=== PATIENT | female | born 1935 | race Asian ===

== ENCOUNTER 2016-08-18 22:04 | Inpatient (IN) | payer MEDICARE, MEDICAID ==
[~2016-08-18] VITALS: Ht 162.6 cm; Wt 66.5 kg
[~2016-08-18 22:04] MED LIST: AMLO1TAB12 PO; ASPI81 PO; CALC-776 PO; CALC1TAB15 PO; METF500T7 PO; METO25 PO; SIMV-259 PO; VITAD400 PO
[2016-08-18] MEDS ORDERED: SIMV-260 PO (22:17)
[2016-08-18] MEDS ORDERED: CARV6 PO (22:17)
[2016-08-18] MEDS ORDERED: ALLO100T PO (22:17)
[2016-08-18] MEDS ORDERED: MELO-273 PO (22:17)
[2016-08-18] MEDS ORDERED: DILTIAZEM HCL 5 MG/ML 5 ML VIAL IVP ONE (22:45)
[2016-08-18 22:52] LABS: BASOPHILS % (AUTO) 0.4 % (0.0-2.0); EOSINOPHILS % (AUTO) 4.1 % (1.0-6.0); LYMPHOCYTES # (AUTO) 2.8 K/uL (1.0-4.8); MEAN CORPUSCULAR HEMOGLOBIN 31.5 pg (26.0-34.0); MEAN CORPUSCULAR HGB CONC 33.2 G/dL (31.0-37.0); MEAN CORPUSCULAR VOLUME 95 fL (80-100); MONOCYTES # (AUTO) 0.6 K/uL (0.1-1.0); MONOCYTES % (AUTO) 10.6 % (2.0-9.0); NEUTROPHILS # (AUTO) 2.3 K/uL (1.8-7.7); NEUTROPHILS % (AUTO) 37.9 % (40.0-70.0); PLATELET COUNT (AUTO) 125 K/uL (150-450); RED BLOOD CELL COUNT(AUTO) 4.44 MIL/uL (4.00-5.20)
[2016-08-18 23:00] LABS: ANION GAP 8 mmol/L (8-16); CALCIUM, TOTAL 9.1 mg/dL (8.8-10.5); CARBON DIOXIDE 28 mmol/L (22-29); CHLORIDE 105 mmol/L (98-107); CREATININE 0.88 mg/dL (0.60-1.30); GLOMERULAR FILTR. RATE CALC > 60 mL/min (>60); POTASSIUM 3.4 mmol/L (3.5-5.1); SODIUM SERUM 141 mmol/L (136-145); UREA NITROGEN, BLOOD 31 mg/dL (7-18)
[2016-08-18 23:05] LABS: PROTHROMBIN TIME 10.3 SEC (9.4-11.6)
[2016-08-18 23:18] LABS: B-TYPE NATRIURETIC PEPTIDE 194 pg/mL (0-100)
[2016-08-18 23:24] LABS: ALANINE AMINOTRANSFERASE 37 U/L (12-78); ALBUMIN 3.8 g/dL (3.4-5.0); ASPARTATE AMINOTRANSFERASE 26 U/L (15-37); BILIRUBIN,TOTAL 0.2 mg/dL (0.1-1.0); CREATINE KINASE MB 1.9 ng/mL (0-5); CREATINE KINASE, TOTAL 157 U/L (26-192); TOTAL PROTEIN, SERUM 7.9 g/dL (6.4-8.2)
[2016-08-18 23:48] LABS: APPEARANCE,URINE CLEAR (CLEAR); GLUCOSE, URINE (UA) NEGATIVE (NEGATIVE); KETONES,URINE NEGATIVE (NEGATIVE); LEUKOCYTE ESTERASE ,URINE NEGATIVE (NEGATIVE); OCCULT BLOOD,URINE TRACE (NEGATIVE); PROTEIN,URINE NEGATIVE (NEGATIVE)
[2016-08-18 23:52] LABS: ADD UA MICROSCOPIC YES
[2016-08-19] VITALS (13 sets, daily range): BP systolic 142–201; BP diastolic 68–101
[2016-08-19] LABS: RBC,URINE 0-2 /HPF (0-2); WBC,URINE None Seen /HPF (0-5)
[2016-08-19 00:01] LABS: SQUAMOUS EPITHELIAL CELL,UR Rare /LPF (None Seen)
[2016-08-19] MEDS ORDERED: PNEUMOCOCCAL VACCINE POLYVALENT 0.5 ML VIAL [PPSV23] IM ONE (02:45)
[2016-08-19] MEDS ORDERED: DEXTROSE 50%-WATER 25 GM/50 ML SYRINGE IVP PRN (06:00)
[2016-08-19] MEDS: INSULIN ASPART 100 UNITS/ML SQ PRN (06:02)
[2016-08-19 06:48] LABS: BASOPHILS % (AUTO) 0.5 % (0.0-2.0); EOSINOPHILS % (AUTO) 2.4 % (1.0-6.0); HEMATOCRIT 41.6 % (36-46); HEMOGLOBIN 13.6 g/dL (12.0-16.0); LYMPHOCYTES # (AUTO) 2.6 K/uL (1.0-4.8); LYMPHOCYTES % (AUTO) 41.8 % (22.0-44.0); MEAN CORPUSCULAR HGB CONC 32.7 G/dL (31.0-37.0); MEAN CORPUSCULAR VOLUME 95 fL (80-100); MONOCYTES # (AUTO) 0.6 K/uL (0.1-1.0); MONOCYTES % (AUTO) 9.5 % (2.0-9.0); NEUTROPHILS # (AUTO) 2.8 K/uL (1.8-7.7); NEUTROPHILS % (AUTO) 45.8 % (40.0-70.0); PLATELET COUNT (AUTO) 121 K/uL (150-450); RED CELL DISTRIBUTION WIDTH 14.1 % (11.5-14.5); WHITE BLOOD COUNT (AUTO) 6.1 K/uL (4.5-11.0)
[2016-08-19 07:09] LABS: ALANINE AMINOTRANSFERASE 34 U/L (12-78); ALBUMIN 3.4 g/dL (3.4-5.0); ANION GAP 8 mmol/L (8-16); ASPARTATE AMINOTRANSFERASE 26 U/L (15-37); BILIRUBIN,TOTAL 0.5 mg/dL (0.1-1.0); CALCIUM, TOTAL 8.7 mg/dL (8.8-10.5); CARBON DIOXIDE 29 mmol/L (22-29); CHLORIDE 103 mmol/L (98-107); CREATININE 0.76 mg/dL (0.60-1.30); GLOMERULAR FILTR. RATE CALC > 60 mL/min (>60); POTASSIUM 3.1 mmol/L (3.5-5.1); SODIUM SERUM 140 mmol/L (136-145); TOTAL PROTEIN, SERUM 7.2 g/dL (6.4-8.2); UREA NITROGEN, BLOOD 22 mg/dL (7-18)
[2016-08-19] MEDS: MELOXICAM 7.5 MG TABLET PO SCH ×2 (08:00→17:01)
[2016-08-19] MEDS ORDERED: POTASSIUM CHLORIDE 20 MEQ ER TABLET PO PRN (08:00)
[2016-08-19] MEDS: POTASSIUM CHL 10 MEQ/WATER 50 ML IV PRN ×3 (08:15→11:59)
[2016-08-19] MEDS: ALLOPURINOL 100 MG TABLET PO SCH ×2 (09:00→17:01)
[2016-08-19] MEDS: CARVEDILOL 6.25 MG TABLET PO SCH ×2 (09:00→21:37)
[2016-08-19] MEDS ORDERED: [UNRECOGNIZED DRUG - OTHER] PO SCH (09:00)
[2016-08-19] MEDS: VALSARTAN 160 MG TABLET PO SCH (09:00)
[2016-08-19] MEDS: AmLODIPine BESYLATE 5 MG TABLET PO SCH ×2 (09:00→17:01)
[2016-08-19] MEDS: ASPIRIN 81 MG CHEWABLE TABLET PO SCH (09:00)
[2016-08-19] MEDS: CHOLECALCIFEROL (VIT D3) 400 UNITS TABLET PO SCH (09:00)
[2016-08-19] MEDS ORDERED: SODIUM CHLORIDE 0.9% 250 ML IV ONE (09:46)
[2016-08-19] MEDS ORDERED: SODIUM BICARBONATE 50 MEQ/50 ML VIAL ONE ×2 (12:54→12:58)
[2016-08-19] MEDS ORDERED: IOHEXOL 300 MG/ML 50 ML VIAL ONE (12:54)
[2016-08-19] MEDS ORDERED: LIDOCAINE HCL/PF 1% 30 ML VIAL ONE ×2 (12:54→12:58)
[2016-08-19] MEDS ORDERED: FentaNYL CITRATE-PF 100 MCG/2 ML VIAL ONE (13:43)
[2016-08-19] MEDS ORDERED: MIDAZOLAM HCL 2 MG/2 ML VIAL ONE (13:44)
[2016-08-19] MEDS ORDERED: 0.9% SODIUM CHLORIDE 10 ML SYRINGE IVP PRN ×2 (13:45→17:15)
[2016-08-19] MEDS ORDERED: SODIUM CHLORIDE 0.9% 500 ML IV ONE (14:11)
[2016-08-19] MEDS ORDERED: IOHEXOL 300 MG/ML 50 ML VIAL IVP ONE (14:15)
[2016-08-19] MEDS ORDERED: MIDAZOLAM HCL 2 MG/2 ML VIAL IVP ONE (14:15)
[2016-08-19] MEDS ORDERED: FentaNYL CITRATE-PF 100 MCG/2 ML VIAL IVP ONE (14:15)
[2016-08-19] MEDS ORDERED: LIDOCAINE 1% 30 ML/SOD BICARB 8.4% 4 ML SQ ONE (14:15)
[2016-08-19 14:57] LABS: GLUCOSE,POINT OF CARE 128 MG/DL (70-110)
[2016-08-19] MEDS ORDERED: HYDROCODONE/ACETAMINOPHEN 5-325 MG TABLET PO PRN (15:15)
[2016-08-19] MEDS ORDERED: OxyCODONE HCL/ACETAMINOPHEN 5-325 MG TABLET PO PRN ×2 (17:15)
[2016-08-19] MEDS ORDERED: ONDANSETRON HCL 4 MG/2 ML VIAL IVP PRN (17:15)
[2016-08-19] MEDS ORDERED: ACETAMINOPHEN 325 MG TABLET PO PRN (17:15)
[2016-08-19] MEDS ORDERED: MAGNESIUM HYDROXIDE SUSPENSION 30 ML UDCUP PO PRN (17:15)
[2016-08-19] MEDS: PANTOPRAZOLE SODIUM 40 MG/VIAL IVP SCH (17:49)
[2016-08-19 18:23] LABS: GLUCOSE,POINT OF CARE 127 MG/DL (70-110)
[2016-08-19] MEDS: DOCUSATE SODIUM 100 MG CAPSULE PO SCH (21:00)
[2016-08-19] MEDS: SIMVASTATIN 20 MG TABLET PO SCH (21:37)
[2016-08-19] MEDS: CeFAZolin 1 GM/DEXTROSE 50 ML IV SCH (21:38)
[2016-08-20] VITALS (8 sets, daily range): BP systolic 104–171; BP diastolic 56–94
[2016-08-20 05:29] LABS: BASOPHILS % (AUTO) 0.5 % (0.0-2.0); HEMATOCRIT 39.8 % (36-46); HEMOGLOBIN 12.8 g/dL (12.0-16.0); LYMPHOCYTES # (AUTO) 1.9 K/uL (1.0-4.8); LYMPHOCYTES % (AUTO) 32.9 % (22.0-44.0); MEAN CORPUSCULAR HEMOGLOBIN 30.7 pg (26.0-34.0); MEAN CORPUSCULAR HGB CONC 32.2 G/dL (31.0-37.0); MEAN CORPUSCULAR VOLUME 95 fL (80-100); MONOCYTES # (AUTO) 0.5 K/uL (0.1-1.0); MONOCYTES % (AUTO) 8.4 % (2.0-9.0); NEUTROPHILS # (AUTO) 3.1 K/uL (1.8-7.7); NEUTROPHILS % (AUTO) 55.2 % (40.0-70.0); PLATELET COUNT (AUTO) 109 K/uL (150-450); RED BLOOD CELL COUNT(AUTO) 4.17 MIL/uL (4.00-5.20); RED CELL DISTRIBUTION WIDTH 14.4 % (11.5-14.5); WHITE BLOOD COUNT (AUTO) 5.6 K/uL (4.5-11.0)
[2016-08-20 05:43] LABS: ANION GAP 8 mmol/L (8-16); CALCIUM, TOTAL 8.6 mg/dL (8.8-10.5); CARBON DIOXIDE 27 mmol/L (22-29); CHLORIDE 107 mmol/L (98-107); CREATININE 0.74 mg/dL (0.60-1.30); GLOMERULAR FILTR. RATE CALC > 60 mL/min (>60); POTASSIUM 4.1 mmol/L (3.5-5.1); SODIUM SERUM 142 mmol/L (136-145); UREA NITROGEN, BLOOD 26 mg/dL (7-18)
[2016-08-20] MEDS: CeFAZolin 1 GM/DEXTROSE 50 ML IV SCH ×2 (05:48→14:22)
[2016-08-20] MEDS: CHOLECALCIFEROL (VIT D3) 400 UNITS TABLET PO SCH (09:24)
[2016-08-20] MEDS: ALLOPURINOL 100 MG TABLET PO SCH (09:24)
[2016-08-20] MEDS: DOCUSATE SODIUM 100 MG CAPSULE PO SCH ×2 (09:25→21:41)
[2016-08-20] MEDS: MELOXICAM 7.5 MG TABLET PO SCH ×2 (09:25→18:01)
[2016-08-20] MEDS: AmLODIPine BESYLATE 5 MG TABLET PO SCH (09:25)
[2016-08-20] MEDS: CARVEDILOL 6.25 MG TABLET PO SCH ×2 (09:25→21:42)
[2016-08-20] MEDS: VALSARTAN 160 MG TABLET PO SCH (09:26)
[2016-08-20] MEDS: PANTOPRAZOLE SODIUM 40 MG/VIAL IVP SCH (09:27)
[2016-08-20] MEDS: ASPIRIN 81 MG CHEWABLE TABLET PO SCH (09:27)
[2016-08-20] MEDS: SIMVASTATIN 20 MG TABLET PO SCH (21:42)
[2016-08-20] MEDS: INSULIN ASPART 100 UNITS/ML SQ PRN (21:43)
[2016-08-21 03:21] LABS: GLUCOSE,POINT OF CARE 135 MG/DL (70-110)
[2016-08-21 04:55] VITALS: BP 151/76
[2016-08-21] MEDS: INSULIN ASPART 100 UNITS/ML SQ PRN (06:29)
[2016-08-21 07:19] VITALS: BP 140/73
[2016-08-21] MEDS: CARVEDILOL 6.25 MG TABLET PO SCH (08:06)
[2016-08-21] MEDS: MELOXICAM 7.5 MG TABLET PO SCH (08:06)
[2016-08-21] MEDS: VALSARTAN 160 MG TABLET PO SCH (08:06)
[2016-08-21] MEDS: ALLOPURINOL 100 MG TABLET PO SCH (08:06)
[2016-08-21] MEDS: CHOLECALCIFEROL (VIT D3) 400 UNITS TABLET PO SCH (08:06)
[2016-08-21] MEDS: ASPIRIN 81 MG CHEWABLE TABLET PO SCH (08:07)
[2016-08-21] MEDS: PANTOPRAZOLE SODIUM 40 MG/VIAL IVP SCH (08:07)
[2016-08-21] MEDS: AmLODIPine BESYLATE 5 MG TABLET PO SCH (08:07)
[2016-08-21] MEDS: DOCUSATE SODIUM 100 MG CAPSULE PO SCH (08:07)
[2016-08-21 11:36] VITALS: BP 122/78
[2016-08-23 00:17] LABS: GLUCOSE,POINT OF CARE 160 MG/DL (70-110)
[2016-08-23 00:17] LABS: GLUCOSE,POINT OF CARE 107 MG/DL (70-110)
[2016-08-23 00:17] LABS: GLUCOSE,POINT OF CARE 110 MG/DL (70-110)
[2016-08-23 00:17] LABS: GLUCOSE COMMENT 1 Received Meds; GLUCOSE,POINT OF CARE 130 MG/DL (70-110)
[2016-08-29 12:42] LABS: GLUCOSE COMMENT 1 Received Meds; GLUCOSE,POINT OF CARE 125 MG/DL (70-110)
[2016-08-29 12:43] LABS: GLUCOSE,POINT OF CARE 111 MG/DL (70-110)
== END 2016-08-21 14:56 | disposition home or self-care (01) | DRG 243 ==
LOC: EMS 22:05 → 5S 08-19 00:22 → ICU 08-19 08:53 → 5N 08-20 18:17
PROVIDERS: ADMIT Internal Medicine; ATTEND Internal Medicine
PROC: 0JH606Z Insertion of Pacemaker, Dual Chamber into Chest Subcutaneous Tissue and Fascia, Open Approach (ICD-10-PCS; principal; 2016-08-19)
PROC: 02H63JZ Insertion of Pacemaker Lead into Right Atrium, Percutaneous Approach (ICD-10-PCS; 2016-08-19)
PROC: 02HK3JZ Insertion of Pacemaker Lead into Right Ventricle, Percutaneous Approach (ICD-10-PCS; 2016-08-19)
PROC: 3E0234Z Introduction of Serum, Toxoid and Vaccine into Muscle, Percutaneous Approach (ICD-10-PCS; 2016-08-19)
DX: I49.5 Sick sinus syndrome (principal); J98.11 Atelectasis; I48.91 Unspecified atrial fibrillation; E78.00 Pure hypercholesterolemia, unspecified; E11.9 Type 2 diabetes mellitus without complications; I10 Essential (primary) hypertension; E87.6 Hypokalemia; E78.5 Hyperlipidemia, unspecified; Z83.3 Family history of diabetes mellitus; Z82.49 Family history of ischemic heart disease and other diseases of the circulatory system; Z79.82 Long term (current) use of aspirin; Z79.899 Other long term (current) drug therapy; Z23 Encounter for immunization
CPT/HCPCS: 33208; 36005; 51702; 71020; 76000; 82962; 84132; 90471; 93005; 99291; C9113; J0690; J2250; J3010; J3480; J3490; J7050; Q9967

== ENCOUNTER → 2017-02-14 | Outpatient (CLI) | payer MEDICARE, OTHER ==
[~2017-02-14] MED LIST changes: +ALLO100T PO; -CALC-776 PO; -CALC1TAB15 PO; +CARV6 PO; +MELO-273 PO; -METF500T7 PO; -METO25 PO; -SIMV-259 PO; +SIMV-260 PO
== END | disposition home or self-care (01) ==
LOC: RADPV 15:14
PROVIDERS: ATTEND Internal Medicine
DX: M17.0 Bilateral primary osteoarthritis of knee (principal); M16.0 Bilateral primary osteoarthritis of hip
CPT/HCPCS: 73521

== ENCOUNTER 2021-06-11 08:34 | Emergency (ER) | payer OTHER ==
[~2021-06-11] VITALS: Ht 147.3 cm; Wt 72.7 kg
[~2021-06-11 08:34] MED LIST changes: -ALLO100T PO; +ALLO100T2 PO; +ASPI-1450 PO; -ASPI81 PO; +CHOL400T56 PO; +MELO-107 PO; -MELO-273 PO; -VITAD400 PO
[2021-06-11] MEDS ORDERED: ASPIRIN 81 MG CHEWABLE TABLET PO ONE (09:15)
[2021-06-11] MEDS ORDERED: NITROGLYCERIN 2% (1 GM=INCH) PACKET TP ONE (09:15)
[2021-06-11 09:44] LABS: BASOPHILS % (AUTO) 0.7 % (0.0-2.0); HEMATOCRIT 39.8 % (36-46); HEMOGLOBIN 13.3 g/dL (12.0-16.0); LYMPHOCYTES % (AUTO) 35.7 % (22.0-44.0); MEAN CORPUSCULAR HEMOGLOBIN 31.8 pg (26.0-34.0); MEAN CORPUSCULAR HGB CONC 33.5 G/dL (31.0-37.0); MEAN CORPUSCULAR VOLUME 95 fL (80-100); MONOCYTES # (AUTO) 0.5 K/uL (0.1-1.0); MONOCYTES % (AUTO) 8.9 % (2.0-9.0); NEUTROPHILS # (AUTO) 2.9 K/uL (1.8-7.7); NEUTROPHILS % (AUTO) 51.7 % (40.0-70.0); PLATELET COUNT (AUTO) 133 K/uL (150-450); RED BLOOD CELL COUNT(AUTO) 4.19 MIL/uL (4.00-5.20); RED CELL DISTRIBUTION WIDTH 14.1 % (11.5-14.5)
[2021-06-11 09:52] LABS: CALCIUM, TOTAL 9.7 mg/dL (8.8-10.5); CREATININE 0.91 mg/dL (0.60-1.30); POTASSIUM 4.6 mmol/L (3.5-5.1)
[2021-06-11 10:03] VITALS: BP 143/75
== END 2021-06-11 10:31 | disposition home or self-care (01) ==
LOC: EMS 08:34
DX: R07.89 Other chest pain (principal); R06.02 Shortness of breath; I10 Essential (primary) hypertension; E11.9 Type 2 diabetes mellitus without complications; E78.00 Pure hypercholesterolemia, unspecified; Z79.899 Other long term (current) drug therapy
CPT/HCPCS: 71045; 80048; 84484; 85025; 93005; 99285; 36415-L1; 36415-TC